=== PATIENT | male | born 1985 | race Caucasian/White ===

== ENCOUNTER 2021-03-31 11:05 | Observation (INO) ==
[2021-03-31] MEDS ORDERED: GI COCKTAIL ED USE PO ONE (13:00)
[2021-03-31] MEDS ORDERED: SODIUM CHLORIDE 0.9% 1000ML 1,000 ML IV STA (13:00)
[2021-03-31 13:41] LABS: Basophils # (auto) 0.04 K/uL (0-0.2); Basophils % (auto) 0.3 %; Eosinophils # (auto) 0.43 K/uL (0-0.5); Eosinophils % (auto) 3.3 %; Hematocrit (blood only) 45.5 % (42-52); Hemoglobin 15.8 g/dL (14.0-18.0); Immature Granulocytes # (auto) 0.02 K/uL (0.00-0.02); Immature Granulocytes % (auto) 0.2 %; Lymphocytes # (auto) 2.59 K/uL (1.2-3.4); Lymphocytes % (auto) 19.9 %; Mean Corpuscular Hemoglobin 30.9 pg (25-34); Mean Corpuscular Hgb Conc 34.7 g/dL (32-36); Mean Platelet Volume 11.5 fL (7.4-10.4); Monocytes # (auto) 1.34 K/uL (0.11-0.59); Monocytes % (auto) 10.3 %; Neutrophils # (auto) 8.62 K/uL (1.4-6.5); Platelet Count 230 K/uL (130-400); RDW Coefficient of Variation 12.5 % (11.5-14.5); RDW Standard Deviation 40.5 fL (36.4-46.3); Red Blood Count 5.11 M/uL (4.7-6.1); White Blood Count 13.04 K/uL (4.8-10.8)
[2021-03-31 13:48] LABS: Appearance Urine Clear (Clear); Blood Urine Negative (Negative); Color Urine Dark Yellow; Glucose Urine UA Negative (Negative); Ketones Urine 2+ (Negative); Leukocyte Esterase Urine Negative (Negative); Nitrite Urine Negative (Negative); Protein Urine Negative (Negative); Urobilinogen Urine Negative (Negative)
[2021-03-31 13:53] LABS: D Dimer 920 ug/L FEU (0-500)
[2021-03-31 13:57] LABS: Bilirubin Urine 1+ (Negative)
[2021-03-31 14:00] LABS: Alanine Aminotransferase 37 U/L (12-78); Albumin Level 3.2 gm/dl (3.4-5.0); Aspartate Aminotransferase 28 U/L (15-37); BUN Creatinine Ratio 12.8 (10-20); Blood Urea Nitrogen 13 mg/dl (7-18); Calcium 8.9 mg/dl (8.5-10.1); Carbon Dioxide 27 mmol/L (21-32); Chloride 103 mmol/L (98-107); Creatinine Clr Calc Pharmacy 96.9 ml/min; Est GFR (African American) 109.1 ml/min; Est GFR (Non-African American) 94.1 ml/min; Glucose 93 mg/dl (70-99); Lipase 101 U/L (73-393); Potassium 3.7 mmol/L (3.5-5.1); Sodium 139 mmol/L (136-145)
[2021-03-31 14:06] LABS: Albumin Globulin Ratio 0.8 (0.9-2); Alkaline Phosphatase 83 U/L (45-117); Bilirubin,Total 0.9 mg/dl (0.2-1); Globulin 3.8 gm/dl (2.5-4.0); Troponin I < 0.015 ng/ml (0-0.045)
[2021-03-31] MEDS ORDERED: OPTIRAY 320 125ml IV ONE (15:02)
--- NOTE | 2021-03-31 15:15 | Emergency Department Note ---
History of Present Illness General Chief complaint: Abdominal Pain Stated complaint: ABDOMINAL PAIN Time Seen by Provider: 03/31/21 12:42 History of Present Illness Maximum Pain Intensity: 6 35-year-old male who presents to the emergency department with complaint of epigastric abdominal pain for the past 48 hours. The patient reports that he had 2 episodes of vomiting on Monday. The nausea has persisted. He denies any pain radiating into the back or lower abdomen. He denies reflux symptoms, chest pain or shortness of breath. The patient also denies any fever or chills. The patient drinks 1-2 Red Bull energy drinks daily, otherwise denies history of significant NSAIDs or alcohol use. The patient reports a strong family history of gallbladder disease, and is concerned that his pain is due to his gallbladder. He rates his discomfort a 6 out of 10. The patient denies any specific alleviating or aggravating factors for the pain. Home Medications Medication Instructions Recorded Confirmed Type famotidine 20 mg tablet (Pepcid) 20 mg PO BID 42 Days #84 tab 03/29/21 03/31/21 Rx ondansetron HCl 4 mg tablet 4 mg PO Q6H PRN #12 tab 03/29/21 03/31/21 Rx (Zofran) pantoprazole 40 mg tablet,delayed 40 mg PO DAILY 28 Days #28 tab 03/29/21 03/31/21 Rx release (Protonix) oxycodone-acetaminophen 5 mg-325 1 - 2 tab PO Q6H PRN #20 tab 04/01/21 Rx mg tablet (Percocet) Allergies Allergy/AdvReac Type Severity Reaction Status Date / Time No Known Allergies Allergy Unknown Unverified 03/29/21 09:56 Past Med/Surg History Medical History (Updated 04/01/21 @ 16:11 by Yony Rodriguez) Acute calculous cholecystitis No significant medical problems Surgical History (Updated 04/01/21 @ 09:01 by Triny Benz RN) Hx laparoscopic cholecystectomy (03/31/21) Laparoscopic Cholecystectomy Dr. Tolbert 03/31/21 Social History (Updated 03/31/21 @ 15:56 by Yony Rodriguez) Smoking Status: Never smoker Second Hand Exposure: No; Hx Alcohol Use: No Hx Substance Use: No Preferred Language: Panamanian Communication Ability: Effective Data Librarian Required: No Beliefs That Will Affect Care: None marital status: Single Current Living Situation: Parent current occupational status: employed Feels Safe at Home: Yes Assistive Devices: None Review of Systems 10 system review was performed and was negative except for pertinent positives and negatives as indicated in history of present illness Physical Exam Vital Signs Vital Signs - 24 hr 03/31/21 16:30 Pulse Rate 70 Respiratory Rate 15 Blood Pressure 147/81 H Blood Pressure Mean 103 CONSTITUTIONAL: Healthy and well nourished. Patient does not appear in any acute distress. HEENT: No scleral icterus or conjunctival injection/pallor. NECK: Full active range of motion without discomfort. LYMPHATICS: No cervical chain adenopathy. RESPIRATORY: Clear to auscultation bilaterally with no wheezing, crackles, rhonchi or stridor. CARDIOVASCULAR: Regular rate and rhythm with no murmurs, rubs or gallops. GASTROINTESTINAL: Bowel sounds present in all quadrants. Examination shows minimal epigastric and left upper quadrant tenderness to palpation. Negative Cullen sign or right upper quadrant tenderness to palpation. No rigidity, guarding or rebound. Negative CVA tenderness. MUSCULOSKELETAL: Full range of motion of all joints without discomfort. No tenderness to palpation through the costochondral joints or ribs. INTEGUMENTARY: No rash or other significant dermatologic conditions noted. HEMATOLOGIC: No ecchymosis or petechiae. PSYCHIATRIC: Positive affect. NEUROLOGIC: No focal neurologic deficits noted. Course Course Patient history and physical exam were performed. Nurses notes were reviewed. Vital signs were reviewed, showing an initial elevated blood pressure of 145/86. The patient is otherwise afebrile. IV access was established, and labs were drawn. The patient was hydrated with a liter normal lean. He was also admin istered a GI cocktail, which did not provide any significant relief. The patient refused any further analgesics or antiemetics. Review of labs shows a mild leukocytosis with a white count of 13.04, left shift and no bandemia. D-dimer was elevated at 920. CMP was otherwise normal with no transaminitis, elevated total bilirubin or alkaline phosphatase. Urinalysis shows no hematuria or signs of infection. After the work-up was completed, I did notice that the patient was actually seen in the emergency department 2 days ago with a normal work-up. The patient did not advise me that he has already been here for evaluation. The patient has an elevated D-dimer today, whereas it was normal 2 days ago. I did recommend CT angiography to rule out pulmonary embolus, and the patient was in agreement. Chest CT angiography did not show evidence for pulmonary emboli or other acute intrathoracic findings. CT imaging does reveal that the patient has a large gallstone within the neck of the gallbladder, as well as fluid around the gallbladder, concerning for cholecystitis. At this point, gallbladder ultrasound was ordered. Patient care was transferred to Alberto Suárez PA-C at change of shift. Please see his dictation for further treatment and final disposition, likely transfer of care to the general surgeon on-call for acute calculus cholecystitis. Administered Medications Discontinued Medications Al Hydrox/Mg Hydrox/Simethicone (Gi Cocktail Ed Use) 1 dose PO ONE ONE Stop: 03/31/21 13:01 Last Admin: 03/31/21 13:33 Dose: 1 dose Documented by: [id number] Bupivacaine HCl (Bupivacaine 0.5 % 5 Mg/1 Ml Mpf 30ml Vial) Confirm Administered Dose 30 ml .ROUTE .STK-MED ONE Stop: 03/31/21 18:35 Last Admin: 03/31/21 20:40 Dose: 25 ml Documented by: [id number] Fentanyl Citrate (Fentanyl Citrate 100 Mcg/2 Ml Vial) 50 mcg IV Q5M PRN PRN Reason: PACU Use Only-Pain Stop: 04/01/21 04:03 Last Admin: 03/31/21 21:33 Dose: 50 mcg Documented by: [id number] Admin: 03/31/21 21:17 Dose: 50 mcg Documented by: [id number] Hydromorphone HCl (Hydromorphone Inj 2 Mg/Ml Syr/Vial) 0.5 mg IV Q5M PRN PRN Reason: PACU Use Only-Pain Stop: 04/01/21 04:03 Last Admin: 03/31/21 21:43 Dose: 0.5 mg Documented by: [id number] Admin: 03/31/21 21:38 Dose: 0.5 mg Documented by: [id number] Sodium Chloride (Nss 1000ml) 1,000 mls @ 999 mls/hr IV .Q1H1M STA Stop: 03/31/21 14:00 Last Infusion: 03/31/21 14:29 Dose: 0 mls/hr Documented by: [id number] Admin: 03/31/21 13:28 Dose: 999 mls/hr Documented by: [id number] Cefoxitin Sodium (Mefoxin) 2,000 mg in 60 mls @ 100 mls/hr IV NOW STA Stop: 03/31/21 18:53 Last Infusion: 04/01/21 01:49 Dose: 0 mls/hr Documented by: [id number] Admin: 03/31/21 19:03 Dose: 100 mls/hr Documented by: [id number] Lactated Ringer's (Lr) 1,000 mls @ 75 mls/hr IV .[id number] AYAKA Stop: 04/30/21 22:26 Last Infusion: 04/01/21 13:09 Dose: 0 mls/hr Documented by: [id number] Admin: 04/01/21 12:21 Dose: 75 mls/hr Documented by: [id number] Infusion: 04/01/21 12:21 Dose: 75 mls/hr Documented by: [id number] Infusion: 04/01/21 06:47 Dose: 75 mls/hr Documented by: [id number] Infusion: 04/01/21 06:10 Dose: 0 mls/hr Documented by: [id number] Infusion: 04/01/21 06:05 Dose: 75 mls/hr Documented by: [id number] Infusion: 04/01/21 05:49 Dose: 0 mls/hr Documented by: [id number] Infusion: 04/01/21 00:55 Dose: 75 mls/hr Documented by: [id number] Infusion: 04/01/21 00:17 Dose: 0 mls/hr Documented by: [id number] Admin: 03/31/21 23:17 Dose: 75 mls/hr Documented by: [id number] Acetaminophen (Ofirmev) 1,000 mg in 100 mls @ 400 mls/hr IV Q8H PRN PRN Reason: Pain Stop: 04/03/21 22:26 Last Infusion: 04/01/21 06:05 Dose: 0 mls/hr Documented by: [id number] Admin: 04/01/21 05:49 Dose: 400 mls/hr Documented by: [id number] Cefoxitin Sodium 2,000 mg/ (Dextrose) 60 mls @ 100 mls/hr IV Q6H AYAKA Stop: 04/11/21 00:00 Last Infusion: 04/01/21 13:09 Dose: 0 mls/hr Documented by: [id number] Admin: 04/01/21 12:21 Dose: 100 mls/hr Documented by: [id number] Infusion: 04/01/21 06:47 Dose: 0 mls/hr Documented by: [id number] Admin: 04/01/21 06:10 Dose: 100 mls/hr Documented by: [id number] Infusion: 04/01/21 00:55 Dose: 0 mls/hr Documented by: [id number] Admin: 04/01/21 00:13 Dose: 100 mls/hr Documented by: [id number] Ioversol (Optiray 320 125ml) 120 ml IV ONCE ONE Stop: 03/31/21 15:03 Last Admin: 03/31/21 15:03 Dose: 120 ml Documented by: [id number] Ketorolac Tromethamine (Ketorolac Tromethamine 15 Mg/Ml Vial) 15 mg IV Q6H PRN PRN Reason: Pain Stop: 04/05/21 22:26 Last Admin: 04/01/21 07:41 Dose: 15 mg Documented by: [id number] Admin: 04/01/21 00:13 Dose: 15 mg Documented by: [id number] Miscellaneous (Surgicel Absorb Hemostat 2in X 14in) 1 ea TOP ONCE ONE Stop: 03/31/21 20:28 Last Admin: 03/31/21 20:28 Dose: 1 ea Documented by: [id number] Morphine Sulfate (Morphine Sulfate 4 Mg/Ml 1 Ml Carp\Vial) 3 mg IV Q4H PRN PRN Reason: Pain Stop: 04/14/21 22:26 Last Admin: 04/01/21 04:43 Dose: 3 mg Documented by: [id number] Morphine Sulfate (Morphine Sulfate 4 Mg/Ml 1 Ml Carp\Vial) Confirm Administered Dose 4 mg .ROUTE .STK-MED ONE Stop: 03/31/21 22:32 Last Admin: 03/31/21 22:32 Dose: 3 mg Documented by: [id number] Oxycodone HCl (Oxycodone Hcl Ir 5 Mg Tab (Immediate Release)) 5 mg PO Q6H PRN PRN Reason: Pain Stop: 04/14/21 22:26 Last Admin: 04/01/21 02:17 Dose: 5 mg Documented by: [id number] Medical Decision Making Medical Records Attestation: I reviewed the patient's medical records. Home Medications Current Medication List: was personally reviewed by me Laboratory Data Attestation: I reviewed the patient's lab results. Result diagrams: 03/31/21 13:21 03/31/21 13:21 Lab Results 03/31/21 03/31/21 03/31/21 Range/Units 13:21 13:21 13:21 WBC 13.04 H (4.8-10.8) K/uL RBC 5.11 (4.7-6.1) M/uL Hgb 15.8 (14.0-18.0) g/dL Hct 45.5 (42-52) % MCV 89.0 (80-100) fL MCH 30.9 (25-34) pg MCHC 34.7 (32-36) g/dL RDW Std Deviation 40.5 (36.4-46.3) fL RDW Coeff of Kiki 12.5 (11.5-14.5) % Plt Count 230 (130-400) K/uL MPV 11.5 H (7.4-10.4) fL Immature Gran % (Auto) 0.2 % Neut % (Auto) 66.0 % Lymph % (Auto) 19.9 % Florence % (Auto) 10.3 % Eos % (Auto) 3.3 % Baso % (Auto) 0.3 % Neut # (Auto) 8.62 H (1.4-6.5) K/uL Lymph # (Auto) 2.59 (1.2-3.4) K/uL Florence # (Auto) 1.34 H (0.11-0.59) K/uL Eos # (Auto) 0.43 (0-0.5) K/uL Baso # (Auto) 0.04 (0-0.2) K/uL Immature Gran # (Auto) 0.02 (0.00-0.02) K/uL D-Dimer 920 H* (0-500) ug/L FEU Sodium 139 (136-145) mmol/L Potassium 3.7 (3.5-5.1) mmol/L Chloride 103 (98-107) mmol/L Carbon Dioxide 27 (21-32) mmol/L Anion Gap 9.0 (3-11) BUN 13 (7-18) mg/dl Creatinine 1.02 (0.6-1.4) mg/dl Est Cr Clr Drug Dosing 96.9 ml/min Est GFR ( Amer) 109.1 ml/min Est GFR (Non-Af Amer) 94.1 ml/min BUN/Creatinine Ratio 12.8 (10-20) Glucose 93 (70-99) mg/dl Calcium 8.9 (8.5-10.1) mg/dl Total Bilirubin 0.9 (0.2-1) mg/dl AST 28 (15-37) U/L ALT 37 (12-78) U/L Alkaline Phosphatase 83 (45-117) U/L Troponin I < 0.015 (0-0.045) ng/ml Total Protein 7.0 (6.4-8.2) gm/dl Albumin 3.2 L (3.4-5.0) gm/dl Globulin 3.8 (2.5-4.0) gm/dl Albumin/Globulin Ratio 0.8 L (0.9-2) Lipase 101 (73-393) U/L Urine Color Urine Appearance (Clear) Urine pH (4.5-7.5) Ur Specific Jacobson (1.000-1.030) Urine Protein (Negative) Urine Glucose (UA) (Negative) Urine Ketones (Negative) Urine Blood (Negative) Urine Nitrite (Negative) Urine Bilirubin (Negative) Urine Urobilinogen (Negative) Ur Leukocyte Esterase (Negative) COVID-19 Eval Order SARS-CoV-2 (PCR) (Negative) 03/31/21 03/31/21 03/31/21 Range/Units 13:21 15:40 15:40 WBC (4.8-10.8) K/uL RBC (4.7-6.1) M/uL Hgb (14.0-18.0) g/dL Hct (42-52) % MCV (80-100) fL MCH (25-34) pg MCHC (32-36) g/dL RDW Std Deviation (36.4-46.3) fL RDW Coeff of Kiki (11.5-14.5) % Plt Count (130-400) K/uL MPV (7.4-10.4) fL Immature Gran % (Auto) % Neut % (Auto) % Lymph % (Auto) % Florence % (Auto) % Eos % (Auto) % Baso % (Auto) % Neut # (Auto) (1.4-6.5) K/uL Lymph # (Auto) (1.2-3.4) K/uL Florence # (Auto) (0.11-0.59) K/uL Eos # (Auto) (0-0.5) K/uL Baso # (Auto) (0-0.2) K/uL Immature Gran # (Auto) (0.00-0.02) K/uL D-Dimer (0-500) ug/L FEU Sodium (136-145) mmol/L Potassium (3.5-5.1) mmol/L Chloride (98-107) mmol/L Carbon Dioxide (21-32) mmol/L Anion Gap (3-11) BUN (7-18) mg/dl Creatinine (0.6-1.4) mg/dl Est Cr Clr Drug Dosing ml/min Est GFR ( Amer) ml/min Est GFR (Non-Af Amer) ml/min BUN/Creatinine Ratio (10-20) Glucose (70-99) mg/dl Calcium (8.5-10.1) mg/dl Total Bilirubin (0.2-1) mg/dl AST (15-37) U/L ALT (12-78) U/L Alkaline Phosphatase (45-117) U/L Troponin I (0-0.045) ng/ml Total Protein (6.4-8.2) gm/dl Albumin (3.4-5.0) gm/dl Globulin (2.5-4.0) gm/dl Albumin/Globulin Ratio (0.9-2) Lipase (73-393) U/L Urine Color Dark Yellow Urine Appearance Clear (Clear) Urine pH 6.0 (4.5-7.5) Ur Specific Jacobson 1.020 (1.000-1.030) Urine Protein Negative (Negative) Urine Glucose (UA) Negative (Negative) Urine Ketones 2+ H (Negative) Urine Blood Negative (Negative) Urine Nitrite Negative (Negative) Urine Bilirubin 1+ H (Negative) Urine Urobilinogen Negative (Negative) Ur Leukocyte Esterase Negative (Negative) COVID-19 Eval Order Covid19 at [facility] SARS-CoV-2 (PCR) NEGATIVE (Negative) Imaging Data Attestation: I personally reviewed and interpreted this imaging study as follows: My Impression: Chest CT angiography does not show evidence for pulmonary emboli, pneumonia, pericarditis, pneumothorax or other acute thoracic findings. A portion of the gallbladder is visualized, showing a 2.7 cm gallstone within the gallbladder neck, as well as pericholecystic edema suspicious for acute cholecystitis. Gallbladder ultrasound was ordered and was pending at the time of transfer of care to Alberto Suárez PA-C at change of shift. Radiologist's Impression: Chest CTA 03/31/21 14:47 CT angio chest PE protocol CT DOSE: 308.92 mGy.cm HISTORY: 35 years-old Male with PE. Acute chest pain with nausea and vomiting TECHNIQUE: Multiple CTA images of the chest were obtained after the intravenous administration of 120 ml Optiray. Coronal and sagittal MIPS were obtained from the axial data set and were submitted for review. All measurements were obtained according to NASCET criteria. A dose lowering technique was utilized adhering to the principles of ALARA. COMPARISON: Chest radiograph 03/29/2021 FINDINGS: CTA: There is adequate opacification of the pulmonary arteries to the level of the subsegmental branches without convincing evidence of acute pulmonary embolism. Normal thoracic aorta.Heart size is normal. CT CHEST: No dominant thyroid nodule is seen. No pathologically adenopathy by CT size criteria. There is no pneumothorax, pleural effusion or focal airspace consolidation. There is suggested mild hepatic steatosis. 2.7 cm gallstone within the gallbladder neck. Colonic wall thickening with pericholecystic edema. Unremarkable soft tissues. No acute fracture. The osseous structures appear intact. IMPRESSION: 1. No acute intrathoracic abnormality. No pulmonary emboli. 2. Cholelithiasis with partially imaged gallbladder wall thickening and pericholecystic edema is suspicious for acute cholecystitis in the appropriate clinical setting. 3. Hepatic steatosis. ACT 112: Negative or not required by law. The above report was generated using voice recognition software. It may contain grammatical, syntax or spelling errors. Electronically signed by: Aj Vizcarra M.D. 03/31/2021 3:26 PM ECG Data Attestation: I personally reviewed and interpreted this ECG as follows: Indication: + abdominal pain and + chest pain Rate (beats per minute): 53 Rhythm: + sinus bradycardia ECG Intervals/blocks: + Normal QRS, + Normal QT and + Normal SD ECG [place]: + Normal ECG ST segments: + Normal ST segments Comparison ECG Date: from (03/29/2021) Change: no significant change Blood Pressure Blood Pressure Findings: Normal blood pressure MDM Narrative Cardiac monitoring: An order was placed for continuous cardiac monitoring. The monitor shows a rate of 53 bpm with a sinus bradycardic rhythm. panel monitor history was reviewed throughout the evaluation, and no dysrhythmias were noted. Patient presents emergency department with complaint of epigastric abdominal pain. The patient's work-up today, including CT imaging and ultrasound does show evidence for acute cholecystitis. It is noted that his laboratory studies were completely normal other than a mild leukocytosis. Laboratory studies are otherwise not suggestive of pancreatitis, hepatitis, UTI, anemia or other major etiologies. Chest CT angiography does not show evidence for pulmonary emboli, pneumonia, pericarditis, pneumothorax or other concerning intrathoracic findings. CT of the abdomen and pelvis also does not show evidence for diverticulitis, bowel obstruction, appendicitis or other acute intra-abdominal findings. A dedicated gallbladder ultrasound was ordered and is pending at the time of transfer of care to Alberto Suárez PA-C at change of shift. Impression & Plan Acute calculous cholecystitis Discharge Plan Visit Data Chief Complaint: Abdominal Pain Stated Complaint: ABDOMINAL PAIN ED Provider: Per [facility] ED Midlevel Provider: Alberto Suárez Discharge Problem: Acute calculous cholecystitis Patient Disposition: Admitted As Inpatient Condition: Good
--- NOTE | 2021-03-31 15:27 | CT Scan Report ---
CT angio chest PE protocol CT DOSE: 308.92 mGy.cm HISTORY: 35 years-old Male with PE. Acute chest pain with nausea and vomiting TECHNIQUE: Multiple CTA images of the chest were obtained after the intravenous administration of 120 ml Optiray. Coronal and sagittal MIPS were obtained from the axial data set and were submitted for review. All measurements were obtained according to NASCET criteria. A dose lowering technique was u tilized adhering to the principles of ALARA. COMPARISON: Chest radiograph 03/29/2021 FINDINGS: CTA: There is adequate opacification of the pulmonary arteries to the level of the subsegmental branches w ithout convincing evidence of acute pulmonary embolism. Normal thoracic aorta.Heart size is normal. CT CHEST: No dominant thyroid nodule is seen. No pathologically adenopathy by CT size criteria. There is no pn eumothorax, pleural effusion or focal airspace consolidation. There is suggested mild hepatic steatosis. 2.7 cm gallstone within the gallbladder neck. Colonic wall thickening with pericholecystic edema. Unremarkable soft tissues. No acute fracture. The osseous str uctures appear intact. IMPRESSION: 1. No acute intrathoracic abnormality. No pulmonary emboli. 2. Cholelithiasis with partially imaged gallbladder wall thickening and pericholecystic edema is susp icious for acute cholecystitis in the appropriate clinical setting. 3. Hepatic steatosis. ACT 112: Negative or not required by law. The above report was generated using voice recognition software. It may contain grammatical, syntax o r spelling errors. Electronically signed by: Aj Vizcarra M.D. 03/31/2021 3:26 PM
--- NOTE | 2021-03-31 16:05 | Electrocardiogram Report ---
Test Reason : Blood Pressure : / mmHG Vent. Rate : 053 BPM Atrial Rate : 053 BPM P-R Int : 128 ms QRS Dur : 084 ms QT Int : 446 ms P-R-T Axes : 049 038 016 degrees QTc Int : 418 ms Sinus bradycardia Normal ECG When compared with ECG of 29-MAR-2021 08:30, No significant change was found Confirmed by Juvenal Nguyen ([id number]) on 03/31/2021 4:04:38 PM Referred By: REFERRED SELF Confirmed By:Juvenal Nguyen
--- NOTE | 2021-03-31 17:21 | Ultrasound Report ---
US gallbladder CLINICAL HISTORY: Right upper quadrant pain. Eval GB - possible cholecystitis. COMPARISON STUDY: No previous studies for comparison. FINDINGS: No hepatic lesions are present. There is no biliary ductal dilatation. The common bile duct measures 3 mm in caliber. A 1.9 cm gallstone within the gallbladder is noted. There is sludge within the gallbladder as well. Gallbladder wall thickening is noted. The wall measures 7 mm in thickness. The wall is edematous. Positive sonographic Cullen sign was elicited. There is no right hydronephrosi s. Pancreatic body is normal. Head and tail are partially obscured. IMPRESSION: 1. Cholelithiasis, gallbladder wall thickening and positive sonographic Cullen sign. The findings sug gest acute cholecystitis. 2. No biliary ductal dilatation. ACT 112: Negative or not required by law. Electronically signed by: Pedro Silver M.D. 03/31/2021 5:19 PM
--- NOTE | 2021-03-31 17:28 | XRay Report ---
PA CHEST RADIOGRAPH AND UPRIGHT AND SUPINE AP RADIOGRAPHS OF THE ABDOMEN CLINICAL HISTORY: Epigastric/back pain COMPARISON STUDY: Chest CT performed earlier today. FINDINGS: Lung volumes are normal. Lungs are clear. There is no pneumothorax or pleural effusion. Ca rdiac size is normal. Mediastinal contours are normal. There is no free air. Contrast within the heidi ecting systems, ureters and bladder from recent contrast-enhanced CT is noted. The bowel gas pattern is normal. A left pelvic calcification likely reflects a phlebolith. IMPRESSION: 1. No free air or evidence of bowel obstruction. 2. No acute cardiopulmonary findings. ACT 112: Negative or not required by law. Electronically signed by: Pedro Silver M.D. 03/31/2021 5:27 PM
--- NOTE | 2021-03-31 18:08 | Emergency Department Note ---
Impression & Plan Acute cholecystitis ED Provider Note Patient care was assumed from my colleague, Per Rodriguez PA-C, at the time of shift change. Please see Mr. Rodriguez's dictation for full history of present i llness and emergency department course prior to my assumption of care. In short, the patient has had epigastric abdominal pain for the past [address] scan of his chest appears to show findings concerning for acute cholecystitis. At the time of shift change we were awaiting formal ultrasound report. Ultrasound is as follows: [facility], [id number] Ultrasound Report Patient: ALBARO VALVERDE Date: 03/31/21#: [id number]: [address] [place] [address]Acct ID:[id number]: Date: 1985[facility] Zip: [place] [id number]: [id number]: EDSex: MRoom/Bed:Att Phy:Diagnosis: ABDOMINAL PAINPri Phy: PCP,NOService Date: 03/31/21Fa Phy:Interpreting Phy: Pedro Silver MDAdmit Phy: Ordering Phy: Yony Rodriguez PA cc: ~ US gallbladder CLINICAL HISTORY: Right upper quadrant pain. Eval GB - possible cholecystitis. COMPARISON STUDY: No previous studies for comparison. FINDINGS: No hepatic lesions are present. There is no biliary ductal dilatation. The common bile duct measures 3 mm in caliber. A 1.9 cm gallstone within the gallbladder is noted. There is sludge within the gallbladder as well. Gallbladder wall thickening is noted. The wall measures 7 mm in thickness. The wall is edematous. Positive sonographic Cullen sign was elicited. There is no right hydronephrosis. Pancreatic body is normal. Head and tail are partially obscured. IMPRESSION: 1. Cholelithiasis, gallbladder wall thickening and positive sonographic Cullen sign. The findings suggest acute cholecystitis. 2. No biliary ductal dilatation. The patient was reevaluated and he was to be very comfortable. He certainly is not toxic. His findings of acute cholecystitis were discussed. The case was also discussed with the on-call surgeon, Dr. Tolbert, who recommended starting antibiotics, which were ordered. The surgical team will evaluate the patient at bedside. Please see their dictation for further patient course, plan, and disposition. Past Med/Surg History Medical History (Updated 03/31/21 @ 18:42 by Leo Tolbert DO, FACS) Acute calculous cholecystitis No significant medical problems Surgical History No significant past surgical history Social History (Updated 03/31/21 @ 15:56 by Yony Rodriguez) Smoking Status: Never smoker marital status: Single current occupational status: employed Feels Safe at Home: Yes Allergies Allergies Allergy/AdvReac Type Severity Reaction Status Date / Time No Known Allergies Allergy Unknown Unverified 03/29/21 09:56 Home Meds Previous Rx's Medication Instructions Recorded famotidine 20 mg tablet (Pepcid) 20 mg PO BID 42 Days #84 tab 03/29/21 ondansetron HCl 4 mg tablet 4 mg PO Q6H PRN #12 tab 03/29/21 (Zofran) pantoprazole 40 mg tablet,delayed 40 mg PO DAILY 28 Days #28 tab 03/29/21 release (Protonix) Results & Data (ED) Vital Signs Vital Signs - 24 hr 03/31/21 11:23 03/31/21 13:23 03/31/21 13:30 Temperature 37.3 C Temperature Source Oral Pulse Rate 68 54 L 59 L Pulse Rate from SpO2 Sensor 60 Respiratory Rate 16 16 20 Respiratory Effort / Characteristics Non-Labored Spontaneous Respiratory Depth Normal Respiratory Pattern Regular Blood Pressure 145/86 H 132/81 Blood Pressure Mean 105 98 Blood Pressure Position Sitting Pulse Oximetry 97 98 99 Oxygen Delivery Method Room Air Room Air Room Air Sepsis Recent Fever Within 48 Hours No Sepsis New/Unexplained Change in Mental Status N/A Sepsis Action Taken by Nursing No Action Required 03/31/21 14:00 03/31/21 14:30 03/31/21 15:10 Temperature Temperature Source Pulse Rate 56 L 55 L 65 Pulse Rate from SpO2 Sensor 56 L 54 L Respiratory Rate 14 18 16 Respiratory Effort / Characteristics Respiratory Depth Respiratory Pattern Blood Pressure 136/91 133/81 Blood Pressure Mean 106 98 Blood Pressure Position Pulse Oximetry 100 98 95 Oxygen Delivery Method Room Air Room Air Room Air Sepsis Recent Fever Within 48 Hours Sepsis New/Unexplained Change in Mental Status Sepsis Action Taken by Nursing 03/31/21 15:30 03/31/21 16:00 03/31/21 16:30 Temperature Temperature Source Pulse Rate 64 65 70 Pulse Rate from SpO2 Sensor Respiratory Rate 22 19 15 Respiratory Effort / Characteristics Respiratory Depth Respiratory Pattern Blood Pressure 138/83 153/87 H 147/81 H Blood Pressure Mean 101 109 103 Blood Pressure Position Pulse Oximetry 96 Oxygen Delivery Method Room Air Sepsis Recent Fever Within 48 Hours Sepsis New/Unexplained Change in Mental Status Sepsis Action Taken by Nursing Laboratory Data Result diagrams: 03/31/21 13:21 03/31/21 13:21 Lab Results 03/31/21 03/31/21 03/31/21 Range/Units 13:21 13:21 13: WBC 13.04 H (4.8-10.8) K/uL RBC 5.11 (4.7-6.1) M/uL Hgb 15.8 (14.0-18.0) g/dL Hct 45.5 (42-52) % MCV 89.0 (80-100) fL MCH 30.9 (25-34) pg MCHC 34.7 (32-36) g/dL RDW Std Deviation 40.5 (36.4-46.3) fL RDW Coeff of Kiki 12.5 (11.5-14.5) % Plt Count 230 (130-400) K/uL MPV 11.5 H (7.4-10.4) fL Immature Gran % (Auto) 0.2 % Neut % (Auto) 66.0 % Lymph % (Auto) 19.9 % [place] % (Auto) 10.3 % Eos % (Auto) 3.3 % Baso % (Auto) 0.3 % Neut # (Auto) 8.62 H (1.4-6.5) K/uL Lymph # (Auto) 2.59 (1.2-3.4) K/uL [place] # (Auto) 1.34 H (0.11-0.59) K/uL Eos # (Auto) 0.43 (0-0.5) K/uL Baso # (Auto) 0.04 (0-0.2) K/uL Immature Gran # (Auto) 0.02 (0.00-0.02) K/uL D-Dimer 920 H* (0-500) ug/L FEU Sodium 139 (136-145) mmol/L Potassium 3.7 (3.5-5.1) mmol/L Chloride 103 (98-107) mmol/L Carbon Dioxide 27 (21-32) mmol/L Anion Gap 9.0 (3-11) BUN 13 (7-18) mg/dl Creatinine 1.02 (0.6-1.4) mg/dl Est Cr Clr Drug Dosing 96.9 ml/min Est GFR ( Amer) 109.1 ml/min Est GFR (Non-Af Amer) 94.1 ml/min BUN/Creatinine Ratio 12.8 (10-20) Glucose 93 (70-99) mg/dl Calcium 8.9 (8.5-10.1) mg/dl Total Bilirubin 0.9 (0.2-1) mg/dl AST 28 (15-37) U/L ALT 37 (12-78) U/L Alkaline Phosphatase 83 (45-117) U/L Troponin I < 0.015 (0-0.045) ng/ml Total Protein 7.0 (6.4-8.2) gm/dl Albumin 3.2 L (3.4-5.0) gm/dl Globulin 3.8 (2.5-4.0) gm/dl Albumin/Globulin Ratio 0.8 L (0.9-2) Lipase 101 (73-393) U/L Urine Color Urine Appearance (Clear) Urine pH (4.5-7.5) Ur Specific [place] (1.000-1.030) Urine Protein (Negative) Urine Glucose (UA) (Negative) Urine Ketones (Negative) Urine Blood (Negative) Urine Nitrite (Negative) Urine Bilirubin (Negative) Urine Urobilinogen (Negative) Ur Leukocyte Esterase (Negative) COVID-19 Eval Order SARS-CoV-2 (PCR) (Negative) 03/31/21 03/31/21 03/31/21 Range/Units 13:21 15:40 15:40 WBC (4.8-10.8) K/uL RBC (4.7-6.1) M/uL Hgb (14.0-18.0) g/dL Hct (42-52) % MCV (80-100) fL MCH (25-34) pg MCHC (32-36) g/dL RDW Std Deviation (36.4-46.3) fL RDW Coeff of Kiki (11.5-14.5) % Plt Count (130-400) K/uL MPV (7.4-10.4) fL Immature Gran % (Auto) % Neut % (Auto) % Lymph % (Auto) % [place] % (Auto) % Eos % (Auto) % Baso % (Auto) % Neut # (Auto) (1.4-6.5) K/uL Lymph # (Auto) (1.2-3.4) K/uL [place] # (Auto) (0.11-0.59) K/uL Eos # (Auto) (0-0.5) K/uL Baso # (Auto) (0-0.2) K/uL Immature Gran # (Auto) (0.00-0.02) K/uL D-Dimer (0-500) ug/L FEU Sodium (136-145) mmol/L Potassium (3.5-5.1) mmol/L Chloride (98-107) mmol/L Carbon Dioxide (21-32) mmol/L Anion Gap (3-11) BUN (7-18) mg/dl Creatinine (0.6-1.4) mg/dl Est Cr Clr Drug Dosing ml/min Est GFR ( Amer) ml/min Est GFR (Non-Af Amer) ml/min BUN/Creatinine Ratio (10-20) Glucose (70-99) mg/dl Calcium (8.5-10.1) mg/dl Total Bilirubin (0.2-1) mg/dl AST (15-37) U/L ALT (12-78) U/L Alkaline Phosphatase (45-117) U/L Troponin I (0-0.045) ng/ml Total Protein (6.4-8.2) gm/dl Albumin (3.4-5.0) gm/dl Globulin (2.5-4.0) gm/dl Albumin/Globulin Ratio (0.9-2) Lipase (73-393) U/L Urine Color Dark Yellow Urine Appearance Clear (Clear) Urine pH 6.0 (4.5-7.5) Ur Specific [place] 1.020 (1.000-1.030) Urine Protein Negative (Negative) Urine Glucose (UA) Negative (Negative) Urine Ketones 2+ H (Negative) Urine Blood Negative (Negative) Urine Nitrite Negative (Negative) Urine Bilirubin 1+ H (Negative) Urine Urobilinogen Negative (Negative) Ur Leukocyte Esterase Negative (Negative) COVID-19 Eval Order Covid19 at [facility] SARS-CoV-2 (PCR) NEGATIVE (Negative) Administered Medications Fentanyl Citrate (Fentanyl Citrate 100 Mcg/2 Ml Vial) 50 mcg IV Q5M PRN PRN Reason: PACU Use Only-Pain Stop: 04/01/21 04:03 Last Admin: 03/31/21 21:33 Dose: 50 mcg Documented by: [id number] Admin: 03/31/21 21:17 Dose: 50 mcg Documented by: [id number] Hydromorphone HCl (Hydromorphone Inj 2 Mg/Ml Syr/Vial) 0.5 mg IV Q5M PRN PRN Reason: PACU Use Only-Pain Stop: 04/01/21 04:03 Last Admin: 03/31/21 21:43 Dose: 0.5 mg Documented by: [id number] Admin: 03/31/21 21:38 Dose: 0.5 mg Documented by: [id number] Lactated Ringer's (Lr) 1,000 mls @ 75 mls/hr IV .[id number] AYAKA Stop: 04/30/21 22:26 Last Infusion: 04/01/21 00:17 Dose: 0 mls/hr Documented by: [id number] Admin: 03/31/21 23:17 Dose: 75 mls/hr Documented by: [id number] Cefoxitin Sodium 2,000 mg/ (Dextrose) 60 mls @ 100 mls/hr IV Q6H AYAKA Stop: 04/11/21 00:00 Last Admin: 04/01/21 00:13 Dose: 100 mls/hr Documented by: [id number] Ketorolac Tromethamine (Ketorolac Tromethamine 15 Mg/Ml Vial) 15 mg IV Q6H PRN PRN Reason: Pain Stop: 04/05/21 22:26 Last Admin: 04/01/21 00:13 Dose: 15 mg Documented by: [id number] Discontinued Medications Al Hydrox/Mg Hydrox/Simethicone (Gi Cocktail Ed Use) 1 dose PO ONE ONE Stop: 03/31/21 13:01 Last Admin: 03/31/21 13:33 Dose: 1 dose Documented by: [id number] Bupivacaine HCl (Bupivacaine 0.5 % 5 Mg/1 Ml Mpf 30ml Vial) Confirm Administered Dose 30 ml .ROUTE .STK-MED ONE Stop: 03/31/21 18:35 Last Admin: 03/31/21 20:40 Dose: 25 ml Documented by: [id number] Sodium Chloride (Nss 1000ml) 1,000 mls @ 999 mls/hr IV .Q1H1M STA Stop: 03/31/21 14:00 Last Infusion: 03/31/21 14:29 Dose: 0 mls/hr Documented by: [id number] Admin: 03/31/21 13:28 Dose: 999 mls/hr Documented by: [id number] Cefoxitin Sodium (Mefoxin) 2,000 mg in 60 mls @ 100 mls/hr IV NOW STA Stop: 03/31/21 18:53 Last Admin: 03/31/21 19:03 Dose: 100 mls/hr Documented by: [id number] Ioversol (Optiray 320 125ml) 120 ml IV ONCE ONE Stop: 03/31/21 15:03 Last Admin: 03/31/21 15:03 Dose: 120 ml Documented by: [id number] Miscellaneous (Surgicel Absorb Hemostat 2in X 14in) 1 ea TOP ONCE ONE Stop: 03/31/21 20:28 Last Admin: 03/31/21 20:28 Dose: 1 ea Documented by: [id number] Morphine Sulfate (Morphine Sulfate 4 Mg/Ml 1 Ml Carp\Vial) Confirm Administered Dose 4 mg .ROUTE .STK-MED ONE Stop: 03/31/21 22:32 Last Admin: 03/31/21 22:32 Dose: 3 mg Documented by: [id number] Imaging Data Radiologist's Impression: Chest/Abdomen X-ray 03/31/21 13:00 PA CHEST RADIOGRAPH AND UPRIGHT AND SUPINE AP RADIOGRAPHS OF THE ABDOMEN CLINICAL HISTORY: Epigastric/back pain COMPARISON STUDY: Chest CT performed earlier today. FINDINGS: Lung volumes are normal. Lungs are clear. There is no pneumothorax or pleural effusion. Cardiac size is normal. Mediastinal contours are normal. There is no free air. Contrast within the collecting systems, ureters and bladder from recent contrast-enhanced CT is noted. The bowel gas pattern is normal. A left pelvic calcification likely reflects a phlebolith. IMPRESSION: 1. No free air or evidence of bowel obstruction. 2. No acute cardiopulmonary findings. ACT 112: Negative or not required by law. Electronically signed by: Pedro Silver M.D. 03/31/2021 5:27 PM Chest CTA 03/31/21 14:47 CT angio chest PE protocol CT DOSE: 308.92 mGy.cm HISTORY: 35 years-old Male with PE. Acute chest pain with nausea and vomiting TECHNIQUE: Multiple CTA images of the chest were obtained after the intravenous administration of 120 ml Optiray. Coronal and sagittal MIPS were obtained from the axial data set and were submitted for review. All measurements were obtained according to NASCET criteria. A dose lowering technique was utilized adhering to the principles of ALARA. COMPARISON: Chest radiograph 03/29/2021 FINDINGS: CTA: There is adequate opacification of the pulmonary arteries to the level of the subsegmental branches without convincing evidence of acute pulmonary embolism. Normal thoracic aorta.Heart size is normal. CT CHEST: No dominant thyroid nodule is seen. No pathologically adenopathy by CT size criteria. There is no pneumothorax, pleural effusion or focal airspace consolidation. There is suggested mild hepatic steatosis. 2.7 cm gallstone within the gallbladder neck. Colonic wall thickening with pericholecystic edema. Unremarkable soft tissues. No acute fracture. The osseous structures appear intact. IMPRESSION: 1. No acute intrathoracic abnormality. No pulmonary emboli. 2. Cholelithiasis with partially imaged gallbladder wall thickening and pericholecystic edema is suspicious for acute cholecystitis in the appropriate clinical setting. 3. Hepatic steatosis. ACT 112: Negative or not required by law. The above report was generated using voice recognition software. It may contain grammatical, syntax or spelling errors. Electronically signed by: Aj Vizcarra M.D. 03/31/2021 3:26 PM Gallbladder Ultrasound 03/31/21 15:30 US gallbladder CLINICAL HISTORY: Right upper quadrant pain. Eval GB - possible cholecystitis. COMPARISON STUDY: No previous studies for comparison. FINDINGS: No hepatic lesions are present. There is no biliary ductal dilatation. The common bile duct measures 3 mm in caliber. A 1.9 cm gallstone within the gallbladder is noted. There is sludge within the gallbladder as well. Gallbladder wall thickening is noted. The wall measures 7 mm in thickness. The wall is edematous. Positive sonographic Cullen sign was elicited. There is no right hydronephrosis. Pancreatic body is normal. Head and tail are partially obscured. IMPRESSION: 1. Cholelithiasis, gallbladder wall thickening and positive sonographic Cullen sign. The findings suggest acute cholecystitis. 2. No biliary ductal dilatation. ACT 112: Negative or not required by law. Electronically signed by: Pedro Silver M.D. 03/31/2021 5:19 PM Discharge Plan Visit Data Chief Complaint: Abdominal Pain Stated Complaint: ABDOMINAL PAIN ED Provider: Per Zabala ED Midlevel Provider: Alberto Suárez Discharge Problem: Acute cholecystitis
[2021-03-31] MEDS ORDERED: cefOXitin 2,000 MG/60 ML BAG IV STA (18:18)
[2021-03-31] MEDS ORDERED: BUPIVACAINE 0.5 % 5 MG/1 ML MPF 30ML VIAL ONE (18:34)
--- NOTE | 2021-03-31 18:34 | Anesthesiology Consultation ---
Date of Service March 31, 2021 Assessment & Plan (1) Encounter for pre-operative examination: Chart Review Chart Review: Acceptable Risk for Surgery and Patient NOT seen in Pre Admission Testing Consults Requested none History Surgery Operation Date: 03/31/21 19:30 Proposed Procedures p Laparoscopic Cholecystectomy - Leo Tolbert DO, FACS Height/Weight Height: 5 ft 8 in Weight: 80.8 kg Allergies Allergy/AdvReac Type Severity Reaction Status Date / Time No Known Allergies Allergy Unknown Unverified 03/29/21 09:56 Medications Home Medications Medication Instructions Recorded Confirmed Last Taken famotidine 20 mg tablet (Pepcid) 20 mg PO BID 42 Days #84 tab 03/29/21 03/31/21 Unknown ondansetron HCl 4 mg tablet 4 mg PO Q6H PRN #12 tab 03/29/21 03/31/21 Unknown (Zofran) pantoprazole 40 mg tablet,delayed 40 mg PO DAILY 28 Days #28 tab 03/29/21 03/31/21 Unknown release (Protonix) Past Medical History Medical History No significant medical problems Past Surgical History Surgical History No significant past surgical history Social History Smoking Status: Never smoker Physical Exam Vital Signs Last Vital Signs Temp 37.3 C 03/31/21 11:23 Pulse 70 03/31/21 16:30 Resp 15 03/31/21 16:30 BP 147/81 H 03/31/21 16:30 Pulse Ox 96 03/31/21 15:30 Testing Laboratory Results 03/31/21 13:21 03/31/21 13:21 Urine Color Dark Yellow 03/31/21 13:21 Urine Appearance Clear (Clear) 03/31/21 13:21 Urine pH 6.0 (4.5-7.5) 03/31/21 13:21 Ur Specific [place] 1.020 (1.000-1.030) 03/31/21 13:21 Urine Protein Negative (Negative) 03/31/21 13:21 Urine Glucose (UA) Negative (Negative) 03/31/21 13:21 Urine Ketones 2+ (Negative) H 03/31/21 13:21 Urine Nitrite Negative (Negative) 03/31/21 13:21 Ur Leukocyte Esterase Negative (Negative) 03/31/21 13:21
--- NOTE | 2021-03-31 18:43 | History & Physical Report ---
Date of Service March 31, 2021 Assessment & Plan (1) Acute calculous cholecystitis: Plan: 35 y/o male with acute cholecystitis plan for laparoscopic cholecystectomy, possible cholangiogram risks discussed to include bleeding, infection, retained stone, bile leak, damage to surrounding structures, open surgery, need for future or more extensive surgery, and risks of anesthesia cefoxitin pre op keep for overnight obs vs. d/c tonight History of Present Illness Primary Care Provider: NO PCP 35 y/o male presents to [facility] ED with chief complaint of abdominal pain. Pain started last Mon, then went away, returned on Monday and hasn't gone away. Tightness in epigastrium with some nausea. No specific food trigger. No prior episodes. Otherwise healthy, works as a esl instructional assistant. Had elevated D Dimer so CTA performed, no PE but cholecystitis on partial cuts of abdomen. RUQUS showed large stone, thickened GBW and positive sonographic cullen's sign. Allergies Allergy/AdvReac Type Severity Reaction Status Date / Time No Known Allergies Allergy Unknown Unverified 03/29/21 09:56 Home Medications Medication Instructions Recorded Confirmed Type famotidine 20 mg tablet (Pepcid) 20 mg PO BID 42 Days #84 tab 03/29/21 03/31/21 Rx ondansetron HCl 4 mg tablet 4 mg PO Q6H PRN #12 tab 03/29/21 03/31/21 Rx (Zofran) pantoprazole 40 mg tablet,delayed 40 mg PO DAILY 28 Days #28 tab 03/29/21 03/31/21 Rx release (Protonix) Past Med/Surg History Medical History (Updated 03/31/21 @ 18:42 by Leo Tolbert DO, FACS) Acute calculous cholecystitis No significant medical problems Surgical History No significant past surgical history Social History (Updated 03/31/21 @ 15:56 by Yony Rodriguez) Smoking Status: Never smoker marital status: Single current occupational status: employed Feels Safe at Home: Yes Review of Systems Review of Systems: All systems reviewed & are unremarkable except as noted in HPI & below Physical Exam Constitutional: WD/WN, vitals as above Respiratory: normal respiratory effort, lungs clear to auscultation Cardiovascular: RRR, no murmur, no edema Gastrointestinal (Abdomen): Percussion/Palpation: + abdomen tender (TTP in ruq and epigastric region, +cullen's sign) and abdomen soft; no guarding, abdomen not rigid and no hernia Results & Data Results & Data ([facility]) Vital Signs (Past 12 Hours) Vital Signs Temp Pulse Resp BP Pulse Ox 03/31/21 16:30 70 15 147/81 H 03/31/21 16:00 65 19 153/87 H 03/31/21 15:30 64 22 138/83 96 03/31/21 15:10 65 16 95 03/31/21 14:30 55 L 18 133/81 98 03/31/21 14:00 56 L 14 136/91 100 03/31/21 13:30 59 L 20 132/81 99 03/31/21 13:23 54 L 16 98 03/31/21 11:23 37.3 C 68 16 145/86 H 97 Laboratory Results Laboratory Results - last 24 hr 03/31/21 03/31/21 03/31/21 13:21 13:21 13:21 WBC 13.04 H RBC 5.11 Hgb 15.8 Hct 45.5 MCV 89.0 MCH 30.9 MCHC 34.7 RDW Std Deviation 40.5 RDW Coeff of Kiki 12.5 Plt Count 230 MPV 11.5 H Immature Gran % (Auto) 0.2 Neut % (Auto) 66.0 Lymph % (Auto) 19.9 [place] % (Auto) 10.3 Eos % (Auto) 3.3 Baso % (Auto) 0.3 Neut # (Auto) 8.62 H Lymph # (Auto) 2.59 [place] # (Auto) 1.34 H Eos # (Auto) 0.43 Baso # (Auto) 0.04 Immature Gran # (Auto) 0.02 D-Dimer 920 H* Sodium 139 Potassium 3.7 Chloride 103 Carbon Dioxide 27 Anion Gap 9.0 BUN 13 Creatinine 1.02 Est Cr Clr Drug Dosing 96.9 Est GFR ( Amer) 109.1 Est GFR (Non-Af Amer) 94.1 BUN/Creatinine Ratio 12.8 Glucose 93 Calcium 8.9 Total Bilirubin 0.9 AST 28 ALT 37 Alkaline Phosphatase 83 Troponin I < 0.015 Total Protein 7.0 Albumin 3.2 L Globulin 3.8 Albumin/Globulin Ratio 0.8 L Lipase 101 Urine Color Urine Appearance Urine pH Ur Specific [place] Urine Protein Urine Glucose (UA) Urine Ketones Urine Blood Urine Nitrite Urine Bilirubin Urine Urobilinogen Ur Leukocyte Esterase COVID-19 Eval Order SARS-CoV-2 (PCR) 03/31/21 03/31/21 03/31/21 13:21 15:40 15:40 WBC RBC Hgb Hct MCV MCH MCHC RDW Std Deviation RDW Coeff of Kiki Plt Count MPV Immature Gran % (Auto) Neut % (Auto) Lymph % (Auto) [place] % (Auto) Eos % (Auto) Baso % (Auto) Neut # (Auto) Lymph # (Auto) [place] # (Auto) Eos # (Auto) Baso # (Auto) Immature Gran # (Auto) D-Dimer Sodium Potassium Chloride Carbon Dioxide Anion Gap BUN Creatinine Est Cr Clr Drug Dosing Est GFR ( Amer) Est GFR (Non-Af Amer) BUN/Creatinine Ratio Glucose Calcium Total Bilirubin AST ALT Alkaline Phosphatase Troponin I Total Protein Albumin Globulin Albumin/Globulin Ratio Lipase Urine Color Dark Yellow Urine Appearance Clear Urine pH 6.0 Ur Specific [place] 1.020 Urine Protein Negative Urine Glucose (UA) Negative Urine Ketones 2+ H Urine Blood Negative Urine Nitrite Negative Urine Bilirubin 1+ H Urine Urobilinogen Negative Ur Leukocyte Esterase Negative COVID-19 Eval Order Covid19 at [facility] SARS-CoV-2 (PCR) NEGATIVE Diagnostic Findings US gallbladder CLINICAL HISTORY: Right upper quadrant pain. Eval GB - possible cholecystitis. COMPARISON STUDY: No previous studies for comparison. FINDINGS: No hepatic lesions are present. There is no biliary ductal dilatation. The common bile duct measures 3 mm in caliber. A 1.9 cm gallstone within the gallbladder is noted. There is sludge within the gallbladder as well. Gallbladder wall thickening is noted. The wall measures 7 mm in thickness. The wall is edematous. Positive sonographic Cl[place] sign was elicited. There is no right hydronephrosis. Pancreatic body is normal. Head and tail are partially obscured. IMPRESSION: 1. Cholelithiasis, gallbladder wall thickening and positive sonographic Cullen sign. The findings suggest acute cholecystitis. 2. No biliary ductal dilatation. PG Care Time/CCT Total # of Minutes Spent Total Time Spent with Patient: Total time spent is greater than 50% in coordination of care (as documented) at patient's floor/unit and/or counseling patient: Coding Level of Care Code INT OBSERVATION CARE 50M LVL 2 Diagnoses Acute calculous cholecystitis K80.00
[2021-03-31] MEDS ORDERED: ONDANSETRON INJ 2 MG/ML 2 ML VIAL ONE (18:49)
[2021-03-31] MEDS ORDERED: LIDOCAINE 2% 2 ML VIAL/AMP(20MG/ML) INFIL ONE (18:49)
[2021-03-31] MEDS ORDERED: MIDAZOLAM HCL 1 MG/ML 2ML VIAL ONE (18:49)
[2021-03-31] MEDS ORDERED: DEXAMETHASONE SOD INJ 4 MG/ML VIAL ONE (18:49)
[2021-03-31] MEDS ORDERED: PROPOFOL IV EMULSION 10 MG/ML 20 ML VIAL IV ONE (18:49)
[2021-03-31] MEDS ORDERED: ROCURONIUM BROMIDE 10 MG/ML 5 ML VIAL IV ONE (18:49)
[2021-03-31] MEDS ORDERED: SUCCINYLCHOLINE CHLORIDE 20 MG/ML 10 ML VIAL IV ONE (18:49)
[2021-03-31] MEDS ORDERED: fentaNYL citrate 100 MCG/2 ML VIAL ONE ×2 (18:50→19:57)
[2021-03-31] MEDS ORDERED: PROMETHAZINE HCL 12.5 MG in SODIUM CHLORIDE 0.9% 50 ML IV PRN (20:03)
[2021-03-31] MEDS ORDERED: ePHEDrine sulfate 50 MG/ML AMP IV PRN (20:03)
[2021-03-31] MEDS ORDERED: ATROPINE SULFATE 0.1 MG/ML 10ML SYR IV PRN (20:03)
[2021-03-31] MEDS ORDERED: ONDANSETRON INJ 2 MG/ML 2 ML VIAL IV PRN ×2 (20:03→22:27)
[2021-03-31] MEDS ORDERED: GLYCOPYRROLATE 0.2 MG/ML VIAL ONE (20:25)
[2021-03-31] MEDS ORDERED: NEOSTIGMINE METHYLSULFATE 1 MG/ML 10ML VIAL ONE (20:25)
[2021-03-31] MEDS ORDERED: SURGICEL ABSORB HEMOSTAT 2IN X 14IN TOP ONE (20:27)
--- NOTE | 2021-03-31 20:46 | Operative Report ---
PG Post Operative Report Pre & Post Diagnosis Operation Date: 03/31/21 19:30 Pre-Op Diagnosis: Acute calculous cholecystitis Post-Op Diagnosis: Acute calculous cholecystitis I identified the patient and participated in the time-out.: Yes Procedure Operation Date: 03/31/21 19:30 Actual Procedures p Laparoscopic Cholecystectomy(Not Applicable) - Leo Tolbert DO, MARGOT Surgeon Leo Tolbert DO, MARGOT Collection Advisor Gallito Padilla Estimated Blood Loss 10 Findings Consistent with Post-Op Diagnosis Acute cholecystitis with large gallstone. Gallbladder aspirated to allow for retraction. Critical view of safety obtained, cystic duct and artery doubly clipped and divided. Posterior branch of the cystic artery doubly clipped and divided. Bleeding of the gallbladder fossa controlled with electrocautery and Surgicel. Specimens Gallbladder Drains None Anesthesia Type General Complications none Disposition Accompanied Patient To Recovery: No Disposition: Recovery Room Indications 35-year-old male presented to the emergency department with several days of right upper quadrant abdominal pain. Right upper quadrant ultrasound showed cholelithiasis with acute cholecystitis. Plan for laparoscopic cholecystectomy with possible cholangiogram. The risks of the procedure were discussed, all questions were answered, and the patient agreed to proceed with surgery as planned. Description of Procedure The patient was properly identified, consented, and taken to the operating room where he was placed in the supine position. General endotracheal anesthesia was induced. SCDs and a safety belt were placed. Preoperative antibiotics were administered. The patient's abdomen was prepped and draped in the standard sterile fashion. A surgical timeout was performed and all parties were in agreement that this was the correct patient and procedure to be performed and we continued as planned. An incision was made superior and to the left of the umbilicus overlying the rectus muscle and the Veress needle was inserted. Saline drop test confirmed entry into the peritoneum. The abdomen was insufflated with carbon dioxide which the patient tolerated without incident. The abdomen was then entered using the Optiview technique and a 5 mm trocar. The laparoscope was inserted and no damage from initial trocar or Veress needle placement was noted, no gross abnormalities were noted within the 4 quadrants of the abdomen. An 11 mm port was placed in the subxiphoid position and two 5 mm ports were then placed in the right subcostal position. The patient was placed in reverse Trendelenburg position and rotated towards the left. The gallbladder was acutely inflamed. An aspiration needle was utilized to decompress the gallbladder to allow for retraction. The dome of the gallbladder was retracted towards the left upper quadrant and the infundibulum was retracted toward the right lower quadrant revealing Calot's triangle. There were some dense adhesions were taken down with blunt dissection. Peritoneal attachments were taken down with electrocautery and blunt dissection. The cystic duct and artery were circumferentially dissected. A window of safety was obtained showing the cystic duct entering the gallbladder with no aberrant structures noted. The cystic duct and artery were doubly clipped and divided. A posterior branch of the cystic artery was clipped and divided. The gallbladder was then lifted off the gallbladder fossa with electrocautery. The gallbladder was placed in an Endo Catch bag and removed through the subxiphoid port site. There was some bleeding from the gallbladder fossa which was controlled with electrocautery along with Surgicel. The right upper quadrant was irrigated and hemostasis was found to be good. 5 mm trochars were removed under direct visualization and the abdomen was allowed to collapse. The subxiphoid port site fascia was closed with 0 Vicryl suture utilizing the Faizan-Erin device prior to removal of the ports. The wound was irrigated, and the skin of all ports was closed with 4-0 Monocryl subcuticular sutures. Dermabond was placed over the wounds. The patient was extubated in the operating room and taken to the PACU where he recovered without apparent incident. All sponge, instrument and needle counts were correct at the conclusion of the procedure. The patient tolerated the procedure well. The physician's advertising assistant manager was present and scrubbed for the entirety of the case and was essential in positioning the patient, prepping and draping, retraction and exposure, driving the laparoscope, removal of the gallbladder, closure the incisions, and placement of the dressings. I attest to the content of the Intraoperative Record and any orders documented therein. Any exceptions are noted below.
[2021-03-31] MEDS: fentaNYL citrate 100 MCG/2 ML VIAL IV PRN ×2 (21:17→21:33)
[2021-03-31] MEDS: HYDROmorphone INJ 2 MG/ML SYR/VIAL IV PRN ×2 (21:38→21:43)
--- NOTE | 2021-03-31 22:00 | Anesthesiology Progress Note ---
Date of Service March 31, 2021 Anesthesia Post Procedure Vital Signs Vital Signs: Temp Pulse Pulse Resp BP BP Pulse Ox 03/31/21 21:55 37.0 C 77 19 158/95 H 100 03/31/21 21:45 56 L 16 176/93 H 99 03/31/21 21:35 71 20 162/79 H 100 03/31/21 21:25 86 15 156/92 H 100 03/31/21 21:15 87 16 153/88 H 94 03/31/21 21:06 36.3 C L 94 H 15 156/80 H 96 03/31/21 16:30 70 15 147/81 H 03/31/21 16:00 65 19 153/87 H 03/31/21 15:30 64 22 138/83 96 03/31/21 15:10 65 16 95 03/31/21 14:30 55 L 18 133/81 98 03/31/21 14:00 56 L 14 136/91 100 03/31/21 13:30 59 L 20 132/81 99 03/31/21 13:23 54 L 16 98 03/31/21 11:23 37.3 C 68 16 145/86 H 97 Pain Intensity Upper Abdomen: Pain Intensity: 6 Transfer of Care Handoff Completed per policy Notes Mental Status: alert / awake / arousable and participated in evaluation Patient Amnestic to Procedure: Yes Nausea / Vomiting: adequately controlled Pain: adequately controlled Airway Patency, RR, SpO2: stable & adequate BP & HR: stable & adequate Hydration State: stable & adequate Anesthetic Complications: no major complications apparent and Pt Satisfied with anesthetic care
[2021-03-31] MEDS ORDERED: oxyCODONE HCL IR 5 MG TAB (IMMEDIATE RELEASE) PO PRN (22:27)
[2021-03-31] MEDS ORDERED: ACETAMINOPHEN 1,000 MG/100 ML VIAL IV PRN (22:27)
[2021-03-31] MEDS ORDERED: MoRPHine SULFATE 4 MG/ML 1 ML CARP\\VIAL IV PRN (22:27)
[2021-03-31] MEDS ORDERED: MoRPHine SULFATE 4 MG/ML 1 ML CARP\\VIAL ONE (22:31)
[2021-03-31] MEDS: LACTATED RINGER'S 1,000 ML IV SCH (23:17)
[2021-04-01] MEDS: cefOXitin 2,000 MG in DEXTROSE 5% 50 ML IV SCH ×3 (00:13→12:21)
[2021-04-01] MEDS: KETOROLAC TROMETHAMINE 15 MG/ML VIAL IV PRN ×2 (00:13→07:41)
--- NOTE | 2021-04-01 10:36 | Surgery Progress Note ---
Date of Service April 01, 2021 Assessment & Plan (1) Acute cholecystitis: Plan: POD 1 lap umer advance diet recheck later today Admission and Anticipated Discharge Date Admission Date: March 31, 2021 Supervising Physician Co-Signing Physician Notes pnt S&E, agree with above. POD#1 lap cholecystectomy for acute cholecystitis. Doing well, a little sore but much better than yesterday. Tolerating lunch. AFVSS. abd soft, appropriately ttp, incisions with dermabond, no infection. d/c to home, f/u in 3 weeks. activity restrictions and wound care instructions reviewed. return precautions given Subjective no complaints, liquid breakfast Physical Exam Gastrointestinal (Abdomen): Inspection/Auscultation: abdomen not distended Percussion/Palpation: abdomen soft Results & Data ([facility]) Vital Signs (Past 12 Hours) Vital Signs Temp Pulse Pulse Resp BP Pulse Ox 04/01/21 07:33 37.1 C 78 16 174/84 H 98 04/01/21 06:15 77 20 171/91 H 04/01/21 06:10 24 169/85 H 04/01/21 06:00 36 H 189/93 H 04/01/21 05:45 97 H 138/89 100 04/01/21 04:39 36.6 C 67 17 160/81 H 99 04/01/21 02:20 96 04/01/21 01:15 37.0 C 87 18 137/81 98 04/01/21 00:15 83 20 04/01/21 00:11 36.9 C 106 H 40 H 159/85 H 98 03/31/21 23:32 16 163/80 H 97 03/31/21 22:45 36.6 C 68 22 157/90 H 99 PG Care Time/CCT Total # of Minutes Spent Total Time Spent with Patient: Total time spent is greater than 50% in coordination of care (as documented) at patient's floor/unit and/or counseling patient: Coding Level of Care Code None Diagnoses Acute cholecystitis K81.0
[2021-04-01] MEDS: LACTATED RINGER'S 1,000 ML IV SCH (12:21)
--- NOTE | 2021-04-02 11:32 | Discharge Summary ---
Date of Service April 02, 2021 Admission HPI Per Admitting Provider 35 y/o male presents to [facility] ED with chief complaint of abdominal pain. Pain started last Mon, then went away, returned on Monday and hasn't gone away. Tightness in epigastrium with some nausea. No specific food trigger. No prior episodes. Otherwise healthy, works as a lead maintenance technician. Had elevated D Dimer so CTA performed, no PE but cholecystitis on partial cuts of abdomen. RUQUS showed large stone, thickened GBW and positive sonographic cullen's sign. Principal Diagnosis acute calculous cholecystitis Discharge Data Allergies Allergy/AdvReac Type Severity Reaction Status Date / Time No Known Allergies Allergy Unknown Unverified 03/29/21 09:56 Consultations 03/31/21 18:20 Consult General Surgery Stat Procedures Performed Operation Date: 03/31/21 19:30 Actual Procedures p Laparoscopic Cholecystectomy(Not Applicable) - Leo Tolbert DO, FACS Ordered Studies 03/31/21 14:47 CT angio chest PE protocol Stat 03/31/21 15:30 US gallbladder Stat Hospital Course (1) Acute calculous cholecystitis: 35-year-old male presented to the emergency department with signs and symptoms of acute calculus cholecystitis. He had an elevated leukocytosis, tenderness to palpation in the right upper quadrant with positive Cullen sign, and ultrasound with positive signs of cholecystitis. He was taken to the operating room on the evening of 31 March 2021 and underwent an uncomplicat ed laparoscopic cholecystectomy. He was admitted to the floor for observation. His diet was advanced. At the time of discharge he was tolerating a regular diet, his pain was well controlled, he was ambulating and urinating normally. The symptoms that he had prior to surgery are gone. He was discharged home on postoperative day #1 with plans to follow-up in the general surgery clinic in 2 to 3 weeks. His activity restrictions and wound care instructions were reviewed. Return precautions were given. (2) Hx laparoscopic cholecystectomy: Total Time Total Time Spent Total Time Spent (In Minutes): 45 Total Time Includes: Examination of the Patient, Discharge Planning and Medication Reconciliation Discharge Plan Discharge Items Patient Disposition: Home - Self-Care Reason For Visit: YOSELYN Discharge Diagnosis: laparoscopic cholecystectomy Condition on Discharge: Good Activity: As commented below Lifting: No more than 10 pounds Bathing Comment: ok to shower Driving/Machine Use: when pain free Non-emergency contact: Surgeon Call non-emergency contact if: you have any medication questions, your pain is not controlled and your temperature is above 101.5 Follow-up/Referrals: Leo Tolbert DO, FACS [Physician] - 04/12/21 9:15 am (Please call to make an appt in approx 2 weeks) PCP,NO [Primary Care Provider] - Diet: Regular Addtl Attending Provider Instructions: Pending Studies at Discharge: Yes Studies:: pathology Stand-Alone Forms: My [facility], Opioid Pain Management, Smoking Cessation Medications and DC Order Prescriptions: New oxycodone-acetaminophen [Percocet] 5-325 mg tablet 1 - 2 tab PO Q6H PRN (Reason: pain) Qty: 20 RF: 0 Continued famotidine [Pepcid] 20 mg tablet 20 mg PO BID 42 Days Qty: 84 RF: 0 pantoprazole [Protonix] 40 mg tablet,delayed release (DR/EC) 40 mg PO DAILY 28 Days Qty: 28 RF: 0 ondansetron HCl [Zofran] 4 mg tablet 4 mg PO Q6H PRN (Reason: nausea and vomiting) Qty: 12 RF: 0 Discharge Orders: Discharge Order (Routine); Ordered 04/01/21 Ordered By: Leo Ba/Other Patient Handouts: Cholecystectomy Laparoscopic Dc Admission Data Admit Date/Time: 03/31/21 20:51 Attending Provider: Leo Tolbert Admit Provider: Leo Tolbert Primary Care Provider: PCP,NO Other Providers: Leo Tolbert Other Interventions: Discharge Summary Assessment (RN) Last Done: 04/01/21 13:09 Coding Level of Care Code 78190 OBS Care - Discharge Diagnoses Acute calculous cholecystitis K80.00 Hx laparoscopic cholecystectomy Z90.49
== END 2021-04-01 14:22 | disposition home or self-care (01) ==
LOC: ED 11:05 → 3E 11:05